=== PATIENT | female | born 1950 | race Caucasian/White ===

== ENCOUNTER 2019-05-12 11:39 | Inpatient (IN) ==
--- NOTE | 2019-05-12 11:53 | PROVIDER DOCUMENTATION ---
HPI-General Adult - General Stated Complaint: BP LOW Time Seen by Provider: 05/12/19 11:44 Source: patient - History of Present Illness -Gen Adult Nature of Presenting Problems: Pt. is 69 yof that presents from rehab after she was SOB and her BP was low. She denies any other complaints. Location of Pain/Injury: reports: none. denies: head, face, mouth, neck, chest, upper extremity, hand(s), abdomen, back, pelvis, genitalia, lower extremity, feet, upper body, lower body, generalized, other Pain Radiation: reports: no radiation. denies: arm(s), back, buttocks, chest, epigastric, feet, groin, jaw, flank (L), legs (lower), LLQ, LUQ, neck, periumbilical, flank (R), RLQ, RUQ, shoulder(s), scapula, scrotal, sternal notch, suprapubic, legs (upper), urethral, vaginal, other Quality of Pain: reports: none. denies: aching, pressure, tightness Severity: reports: mild. denies: moderate, severe Onset/Duration: reports: abrupt, just prior to arrival Timing: reports: still present. denies: improving, intermittent, getting worse Context/Activities at Onset: reports: light activity. denies: none, moderate activity, vigorous activity, recent emotional stress, recent physical stress, recent trauma history, possible bad food, cold exposure, eating, out of country travel, rest, sleep, sexual activity, other Modifying Factors: improves with: nothing Associated Symptoms: reports: shortness of breath. denies: denies symptoms, anxiety, arm pain, back/neck pain, chest pain, constipation, cough, diaphoresis, diarrhea, dizziness, EENT symptoms, fatigue, fever/chills, genitourinary problems, headaches, heartburn, joint pain, loss of appetite, malaise, muscle aches, sinus congestion/drainage, nausea, rash, seizure, sensory/motor loss, pain with inspiration, swelling/mass in abdomen, syncope, vomiting, weakness, trouble walking, other Similar Symptoms Previously?: No Recently seen or treated by another doctor?: No Review of Systems - Adult - REVIEW OF SYSTEMS - ADULT Constitutional: reports: no symptoms reported Eyes: reports: no symptoms reported Ears, Nose, Mouth & Throat: reports: no symptoms reported Cardiovascular: reports: no symptoms reported Respiratory: reports: see HPI, shortness of breath. denies: cough, dyspnea on exertion, pleurisy Gastrointestinal: reports: no symptoms reported Genitourinary: reports: no symptoms reported Musculoskeletal: reports: no symptoms reported Integumentary: reports: no symptoms reported Neurological: reports: no symptoms reported Psychiatric: reports: no symptoms reported Past History - Adult - PAST MEDICAL HISTORY-ADULT Review of Records: reports: Old Records Reviewed, Nursing Assessment Review, Medications Reviewed, Social history reviewed & non-contributory. - IMMUNIZATION STATUS Childhood Immunizations: See Nurse Assessment Flu Vaccine: See Nurse Assessment - FAMILY HISTORY Family History: reviewed, not pertinent - SOCIAL HISTORY Smoking: non-smoker Physical Exam-General - PHYSICAL EXAM-ADULT Initial Vital Signs Reviewed: Yes - CONSTITUTIONAL General Appearance: alert, moderate distress, obese. negative: anxious, obtunded, combative - EYES Eyes: PERRL/EOMI, pink conjunctivae - HEAD, EARS, NOSE, MOUTH & THROAT HENMT: normocephalic/atraumatic, moist mucous membranes - NECK Neck: non-tender, full range of motion, supple, normal inspection - RESPIRATORY Respiratory: lungs clear, normal breath sounds - CARDIOVASCULAR Cardiovascular: regular rate, rhythm, no JVD, tachycardia. negative: extra beats, friction rub, irregularly irregular - GASTROINTESTINAL (ABDOMEN) Abdominal Exam: normal bowel sounds, non tender, soft - LYMPHATIC Lymphatic: no adenopathy - MUSCULOSKELETAL Back Exam: normal inspection, no CVA tenderness, no vertebral tenderness Extremity: normal range of motion, non-tender, normal gait, normal inspection Peripheral Pulses: radial (R): 2+, radial (L): 2+ - SKIN Integumentary: pallor. negative: cyanosis, erythema, tenderness - NEUROLOGIC Neurologic: grossly normal, no motor/sensory deficits - PSYCHIATRIC Psych/Mental Status: normal mood/affect, normal thought content, normal thought process, oriented x 3. negative: anxious, paranoid, tearful Progress - PLAN OF CARE/RESULTS Progress/Plan/Lab Results: Orders Category Date Time Status Saline Loc NOW Care 05/12/19 11:49 Ordered CHEST-PORTABLE [RAD] Stat Exams 05/12/19 11:50 Ordered CBC WITH ELECTRONIC DIFF [HEME] Stat Lab 05/12/19 11:50 Uncollected CK PROFILE [SP CHEM] Stat Lab 05/12/19 11:50 Uncollected COMPREHENSIVE METABOLIC PANEL [CHEM] Stat Lab 05/12/19 11:50 Uncollected PRO B-NATRIURETIC PEPTIDE Stat Lab 05/12/19 11:50 Ordered TROPONIN T Stat Lab 05/12/19 11:[address] W/POSS RFLX CULT [URINALYSIS] Stat Lab 05/12/19 11:50 Uncollecte d EKG [EKG] Stat Ther 05/12/19 11:49 Ordered Laboratory Tests 05/12/19 05/12/19 05/12/19 11:55 12:17 12:17 WBC 12.34 H RBC 4.29 Hgb 13.1 Hct 40.2 MCV 93.7 MCH 30.5 MCHC 32.6 L RDW Std Deviation 18.4 H Plt Count 335 MPV 9.3 Immature Gran % (Auto) 0.6 H Neut % (Auto) 64.9 Lymph % (Auto) 23.7 Cass % (Auto) 7.5 Eos % (Auto) 2.7 Baso % (Auto) 0.6 Immature Gran # (Auto) 0.08 H Neut # (Auto) 7.99 H Lymph # (Auto) 2.93 Cass # (Auto) 0.93 H Eos # (Auto) 0.33 Baso # (Auto) 0.08 Specimen Type ARTERIAL Sample Site R BRACHIAL pH 7.45 pCO2 40 pO2 45 L* HCO3 27.3 H Base Excess 3.5 H Oxyhemoglobin 82.8 L* ABG O2 Sat (Calculated) 15.2 ABG O2 Saturation 85.9 L ABG Carboxyhemoglobin 2.80 H ABG Methemoglobin 0.9 Lloyd Test NO A-a O2 Difference 55.0 Total Hemoglobin 13.1 Lactate 1.10 Blood Gas Modality ROOM AIR FiO2 % 21.0 Sodium Potassium Chloride Carbon Dioxide Anion Gap BUN Creatinine Estimated GFR/1.73 m2 BUN/Creatinine Ratio Glucose Calculated Osmolality Calcium Total Bilirubin AST ALT Alkaline Phosphatase Creatine Kinase Troponin T Zoh-U-Udnparphvoz Pept 1718 H Total Protein Albumin Globulin Albumin/Globulin Ratio 05/12/19 05/12/19 12:17 12:17 WBC RBC Hgb Hct MCV MCH MCHC RDW Std Deviation Plt Count MPV Immature Gran % (Auto) Neut % (Auto) Lymph % (Auto) Cass % (Auto) Eos % (Auto) Baso % (Auto) Immature Gran # (Auto) Neut # (Auto) Lymph # (Auto) Cass # (Auto) Eos # (Auto) Baso # (Auto) Specimen Type Sample Site pH pCO2 pO2 HCO3 Base Excess Oxyhemoglobin ABG O2 Sat (Calculated) ABG O2 Saturation ABG Carboxyhemoglobin ABG Methemoglobin Lloyd Test A-a O2 Difference Total Hemoglobin Lactate Blood Gas Modality FiO2 % Sodium 140 Potassium 4.6 Chloride 106 Carbon Dioxide 25 Anion Gap 9 BUN 13 Creatinine 1.1 H Estimated GFR/1.73 m2 49 BUN/Creatinine Ratio 12 Glucose 89 Calculated Osmolality 279 Calcium 9.7 Total Bilirubin 0.20 AST 29 ALT 32 Alkaline Phosphatase 101 Creatine Kinase 175 H Troponin T 0.074 Dfm-F-Ysfidhxvqnu Pept Total Protein 6.4 Albumin 3.4 L Globulin 3.0 Albumin/Globulin Ratio 1.0 Discussed results and plan of care with patient. Patient agrees with plan and verbalizes understanding. Result Diagrams: 05/12/19 12:17 05/12/19 12:17 - EKG 1 Time of EKG reading by physician:: 13:42 EKG Read and Signed by:: Miguel Ángel Vera EKG Interpretation (*Must complete 3 of following elements*): Abnormal Rate: 95 Rhythm: Sinus with non-specific ST changes ST Wave: non-specific ST changes - XRAY 1 XRAY Study: Chest ([facility] - [address] [place] [address] [place] [id number] [facility] - [address] [place] [address] Department of Imaging Patient: VIET GANNON Date: 05/12/19MR#: [id number] : 9ADM Status: PRE ERAcct#: [id number] Age/Sex: 69/FRoom/Bed: Loc: P.ED Ordering Physician: Monse Desai Family Physician: Kumar Mancini MD Reason for Procedure: SOB Signed EXAM: CHEST-PORTABLE 05/12/2019 HISTORY: SOB TECHNIQUE: AP upright portable at 1258 COMMENT: The heart is at the upper limits of normal. The pulmonary vascularity is slightly prominent. There is what appears to be platelike atelectasis in the lingula. The left costophrenic angle is somewhat obscured. There are no previous studies available for comparison. IMPRESSION: Borderline cardiomegaly. Lingular atelectasis. Questionable left pleural effusion versus atelectasis. Electronically signed by Deion Weaver 05/12/2019 12:55 PM 05/12/19 1255 Interpreting Physician: Deion Weaver MD Dictated Date/Time: 05/12/19 1251 cc: Monse Desai; Kumar Mancini MD) XRAY Interpretation: See note - CONSULTS/PCP/HOSPITALIST Notification #1 *Consult/PCP/Hospitalist*: Vandana for Dr. Mancini Time Discussed: 13:41 Reason/Comments: Admission Consult Disposition: Will see in ED, Admit Departure - Departure Date of Disposition Decision: 05/12/19 Time of Disposition Decision: 13:41 DIAGNOSIS: Hypoxia, Shortness of breath, Renal insufficiency, Pleural effusion Disposition: ADMITTED INPATIENT 09 Certified Medical Emergency: Emergent Condition: Stable Referrals and Follow-Ups: Kumar Mancini MD [Primary Care Provider] - - Critical Care Note This patient required my direct & personal management of CC.: No Attestation - Physician/ JAYDEN Attestation Patient care was provided by Advanced Practice Provider:: Yes Advanced Practice Provider:: Monse Desai Advanced Practice Provider documentation review:: The Mid-level provider documentation, treatment plan and medical decision making was reviewed by the physician who agrees with all treatment and medical decision making by the P. The physician spent face to face time with patient:: No Advanced Practice Provider documentation review:: Supervising physician onsite and consulted in the evaluation and care of this patient. The physician did not have a face to face encounter with the patient.
[2019-05-12 12:19] LABS: BE 3.5 mmoll (-3.0-3.0); BLOOD TYPE ARTERIAL; HCO3-(ACT) 27.3 mmoll (20.0-26.0); METHB 0.9 % (0.0-1.5); O2(CT) 15.2 mL/dL (15.0-23.0); PCO2(98.6) 40 mmHg (35-45); SAMPLE BLOOD; SAO2 85.9 % (95.0-100.0); THB 13.1 g/dL (11.5-17.4); pH(98.6) 7.45 (7.35-7.45)
[2019-05-12 12:38] LABS: PO2(98.6) 45 mmHg (60-100)
[2019-05-12 12:40] LABS: ALLEN TEST NO; MODALITY ROOM AIR; O2HB 82.8 % (95.0-99.0)
[2019-05-12 12:50] LABS: BASO# 0.08 X1000 (0.0-0.2); BASO% 0.6 % (0.0-0.8); EOS# 0.33 X1000 (0.0-0.7); EOS% 2.7 % (0.0-10.0); HEMATOCRIT 40.2 % (37.0-47.0); HEMOGLOBIN 13.1 g/dL (12.0-16.0); IMM GRAN# 0.08 X1000 (0.0-0.04); IMM GRAN% 0.6 % (0.0-0.5); LYMPH# 2.93 X1000 (1.2-3.4); LYMPH% 23.7 % (20.5-51.1); MCH 30.5 PG (27-31); MCHC 32.6 g/dL (33-37); MCV 93.7 FL (81-99); MONO# 0.93 X1000 (0.11-0.59); MONO% 7.5 % (1.7-9.3); MPV 9.3 FL (7.4-10.4); NEUT# 7.99 X1000 (1.4-6.5); NEUT% 64.9 % (42.2-75.2); PLT 335 X1000 (130-400); RBC 4.29 XMIL (4.2-5.4); RDW 18.4 % (11.5-14.5); WBC 12.34 X1000 (4.8-10.8)
--- NOTE | 2019-05-12 12:57 | Diag Imaging Result Doc PS360 ---
EXAM: CHEST-PORTABLE 05/12/2019 HISTORY: SOB TECHNIQUE: AP upright portable at 1258 COMMENT: The heart is at the upper limits of normal. The pulmonary vascularity is slightly prominent. There is what appears to be platelike atelectasis in the lingula. The left costophrenic angle is somewhat obscured. There are no previous studies available for comparison. IMPRESSION: Borderline cardiomegaly. Lingular atelectasis. Questionable left pleural effusion versus atelectasis. Electronically signed by Deion Weaver 05/12/2019 12:55 PM
[2019-05-12 13:18] LABS: ALBUMIN 3.4 g/dL (3.5-5.0); CALCIUM 9.7 mg/dL (8.8-10.2); CREATININE 1.1 mg/dL (0.5-0.9); POTASSIUM 4.6 mmol/L (3.5-5.1); TOTAL BILIRUBIN 0.2 mg/dL (0.20-1.00); TOTAL PROTEIN 6.4 g/dL (6.3-8.3)
--- NOTE | 2019-05-12 13:20 | EKG Report ---
Test Performed on : 05/12/2019 1:16:00 PM Test Reason : SOB Blood Pressure : / mmHG Vent. Rate : 095 BPM Atrial Rate : 095 BPM P-R Int : 164 ms QRS Dur : 094 ms QT Int : 366 ms P-R-T Axes : 061 016 006 degrees QTc Int : 459 ms Normal sinus rhythm. Possible Inferior infarct , age undetermined Abnormal ECG When compared with ECG of 05-SEP-2009 14:03, Borderline criteria for Inferior infarct are now present Nonspecific T wave abnormality now evident in Inferior leads T wave inversion now evident in Anterior leads Unconfirmed Result
[2019-05-12 14:09] LABS: CK INDEX 3.5 (0.0-2.5); CK-MB 6.08 ng/mL (0.0-5.0)
[2019-05-12 14:16] LABS: BILIRUBIN URINE NEGATIVE (NEGATIVE); BLOOD URINE NEGATIVE (NEGATIVE); CLARITY SL. CLOUDY (CLEAR); COLOR YELLOW; GLUCOSE URINE NEGATIVE (NEGATIVE); KETONE URINE TRACE mg/dL (NEGATIVE); LEUKOCYTES URINE TRACE (NEGATIVE); NITRITE URINE NEGATIVE (NEGATIVE); PROTEIN URINE TRACE mg/dL (NEGATIVE); UROBILINOGEN URINE NORMAL
[2019-05-12 14:17] LABS: URINE BACTERIA 3+ /HFP; URINE CAST NONE SEEN /LPF; URINE CRYSTAL NONE SEEN /HPF; URINE EPITHELIAL CELLS >10 /HPF (<10); URINE RBC <10 /HPF (<10); URINE SOURCE CLEAN CATCH; URINE WBC 20-40 /HPF (<10); URINE YEAST NONE SEEN /HPF
--- NOTE | 2019-05-12 15:09 | PROGRESS NOTE ---
DATE: 05/12/2019 SUBJECTIVE: Ms. Schroeder presented to the emergency room complaining of increasing shortness of breath. She has a history of COPD. Evidently, she was at rehab. She was found to have a low O2 saturation, prompting them sending her to the ER for evaluation. On arrival to the emergency room, she had a room air saturation of 83%. Room air ABGs were obtained. pH of 7.45, pCO2 of 40, PO2 of 45 with a bicarbonate of 27.3, and carboxyhemoglobin is 2.80. Chest x-ray revealed borderline cardiomegaly with lingular atelectasis. The patient was worked up by the emergency room provider. Admission was recommended. When I went in to examine Ms. Schroeder, she refused to be admitted, stating that her granddaughter who they had raised was 16 and she was having her wisdom teeth out in the morning and that she had to be there for her surgery. We did discuss in depth how sick Ms. Schroeder is. We discussed that her oxygen levels on 2 L are running 88 to 92 while I was in the room examining her with respirations that are running 22 to 26. She continued to refuse admission. Ms. Schroeder uses oxygen at home. She does have a stationary tank. She did agree to allow our addiction social worker to call [facility] who supplies her oxygen, and attempt to get portable oxygen for her to use. We did discuss with Ms. Schroeder, as well as her , that she is in respiratory distress now and that this could deteriorate quickly, ultimately leading to her . They both voiced understanding. We did discuss that if she does have trouble, they need to call 911 immediately, not try to drive her back to the hospital. Desmond Desai, the nurse practitioner in the emergency room, is aware. The patient and her have been notified that she will have to sign out against medical advice. They are both agreeable. Dictated by MICHAEL Meehan for Kumar Mancini MD cc: MICHAEL Meehan MD [facility]
[2019-05-12] MEDS ORDERED: ZOFRAN IV PRN ×2 (15:32→18:15)
[2019-05-12] MEDS ORDERED: DUONEB (A & A) INH PRN ×2 (15:35→18:15)
[2019-05-12] MEDS: ROCEPHIN 1 GM in NS 50 ML IV SCH (17:35)
[2019-05-12] MEDS: ZITHROMAX PO SCH (17:35)
--- NOTE | 2019-05-12 17:59 | EKG Report ---
Test Performed on : 05/12/2019 4:14:23 PM Test Reason : repeat Blood Pressure : / mmHG Vent. Rate : 095 BPM Atrial Rate : 095 BPM P-R Int : 176 ms QRS Dur : 092 ms QT Int : 336 ms P-R-T Axes : 064 023 043 degrees QTc Int : 422 ms Normal sinus rhythm. Nonspecific T wave abnormality Abnormal ECG When compared with ECG of 12-MAY-2019 13:16, (Unconfirmed) No significant change was found Unconfirmed Result
[2019-05-12] MEDS ORDERED: TYLENOL PO PRN (18:15)
[2019-05-12] MEDS: DUONEB (A & A) INH SCH ×2 (20:20→23:40)
--- NOTE | 2019-05-12 22:18 | HISTORY AND PHYSICAL ---
CHIEF COMPLAINT: Low oxygen saturation. HISTORY OF PRESENT ILLNESS: This is a 69-year-old morbidly obese female with a history of COPD who presented to the emergency room after having been found to have to have am oxygen saturation of 78% at rehab. The patient wears oxygen at home but only at night. She feels that she has been in her normal state, at her normal level of breathlessness. She was noted to have a room air saturation of 83% on arrival to the emergency room. ABGs revealed a pCO2 of 40 with a pO2 of 45, with saturations that were running 88% to 92% on 2 L nasal cannula. On 2 L nasal cannula, O2 saturations now have been running 90% to 92%. Once again, the patient does not feel breathless. She denies any fever or chills, any increase in shortness of breath, productive cough, or any chest pain or palpitations. PAST MEDICAL HISTORY: COPD, dementia, hypothyroid, hypertension. PAST SURGICAL HISTORY: Denies. SOCIAL HISTORY: She denies alcohol, tobacco, or illicit drug use. She does live with her . ALLERGIES: Codeine, which causes a rash. HOME MEDICATIONS: A list will be obtained by the nursing staff, and once verified, will be restarted as appropriate. PHYSICAL EXAMINATION: VITAL SIGNS: Blood pressure is 156/92 with a heart rate of 101. Respirations are 20 to 22. Temperature is 98.1 with O2 saturations that are 90% to 92% on 2 L nasal cannula. HEENT: Eyes: Pupils are equal and round and react to light. EOMs are intact. Sclerae anicteric. Head is normocephalic, atraumatic. Mucous membranes are moist. NECK: Supple. Trachea midline. No JVD. CARDIOVASCULAR: Regular rate and rhythm. S2 and S2 appreciated. She is tachycardic. EXTREMITIES: Calves are nontender bilaterally. Peripheral pulses palpable x4 extremities. PULMONARY: Breath sounds are clear with no increased work of breathing noted. Chest rise falls symmetrically with respiration. Chest wall is nontender to palpation. GASTROINTESTINAL: Abdomen is soft, nontender, nondistended with bowel sounds in all 4 quadrants. SKIN: Warm and dry. NEUROLOGIC: She is alert oriented x3. LABS: WBCs 12.3 with hemoglobin 13.1, hematocrit 40.2, platelets 335. Sodium is 140, potassium 4.6, BUN 13, creatinine 1.1 with a glucose of 89. CPK is 175 with CK-MB of 6, troponin 0.074 and proBNP of 1718. Urinalysis reveals 20 to 40 microscopic white blood cells with greater than 10 epithelial cells and 3+ bacteria. She is nitrite negative. Chest x-ray reveals borderline cardiomegaly, lingular atelectasis, questionable left pleural effusion versus atelectasis. ASSESSMENT: 1. Acute hypoxic respiratory failure. 2. Chronic obstructive pulmonary disease, acute on chronic exacerbation. 3. Acute kidney injury. 4. Hypothyroid. 5. Hypertension. 6. DVT prophylaxis and GI prophylaxis. PLAN: The patient will be admitted to ICU at [facility]. telemetry continue with supplemental oxygen. ABGs in the morning incentive spirometer every 4 hours DuoNeb treatments every 4 hours with every 2 hours p.r.n. Blood cultures and sputum culture will be ordered. Rocephin and azithromycin. identify her home medications and continue as appropriate. DVT prophylaxis, Lovenox, GI prophylaxis, Prilosec. Further treatments pending hospital course. The plan was discussed with Dr. Mancini. Dictated by MICHAEL Meehan for Kumar Mancini MD cc: MICHAEL Meehan MD [facility]
[2019-05-12] MEDS ORDERED: RISPERDAL PO ONE ×2 (22:40→22:46)
[2019-05-12] MEDS: BENADRYL PO PRN (22:54)
[2019-05-12] MEDS: TYLENOL PO PRN (22:54)
[2019-05-12] MEDS ORDERED: ARICEPT PO ONE (23:17)
[2019-05-12] MEDS: ROBITUSSIN-DM PO PRN (23:41)
--- NOTE | 2019-05-12 23:52 | HISTORY AND PHYSICAL ---
ADDENDUM: Patient seen and examined by myself. Full note dictated and discussed with nurse practitioner. The patient was in her usual state of health at home until she presented to physical therapy this afternoon. In routine vital check, they noted her O2 saturation was 79%, was actually 83% on room air when she arrived to the ER. She does not have oxygen for daily use at home, simply uses oxygen at home at night on an as-needed basis. Her chest x-ray shows a probable pleural effusion, which does appear to be new. We are going to admit her to the hospital, place her on home oxygen, breathing treatments. We will follow. We will place her on antibiotics. Further orders as needed. cc: Kumar Mancini MD
[2019-05-13] MEDS: DUONEB (A & A) INH SCH ×6 (04:21→23:56)
[2019-05-13 05:45] LABS: BASO# 0.06 X1000 (0.0-0.2); BASO% 0.6 % (0.0-0.8); EOS# 0.36 X1000 (0.0-0.7); EOS% 3.6 % (0.0-10.0); HEMOGLOBIN 12.8 g/dL (12.0-16.0); IMM GRAN# 0.04 X1000 (0.0-0.04); IMM GRAN% 0.4 % (0.0-0.5); LYMPH# 3.65 X1000 (1.2-3.4); LYMPH% 36.5 % (20.5-51.1); MCH 29.8 PG (27-31); MONO# 0.77 X1000 (0.11-0.59); MONO% 7.7 % (1.7-9.3); MPV 9.1 FL (7.4-10.4); NEUT# 5.11 X1000 (1.4-6.5); NEUT% 51.2 % (42.2-75.2); PLT 356 X1000 (130-400); RDW 18.3 % (11.5-14.5); WBC 9.99 X1000 (4.8-10.8)
[2019-05-13 06:01] LABS: ALBUMIN 3.3 g/dL (3.5-5.0); CALCIUM 9.6 mg/dL (8.8-10.2); TOTAL BILIRUBIN 0.3 mg/dL (0.20-1.00); TOTAL PROTEIN 6.6 g/dL (6.3-8.3)
[2019-05-13 06:04] LABS: BE 4.9 mmoll (-3.0-3.0); BLOOD TYPE ARTERIAL; HCO3-(ACT) 28.6 mmoll (20.0-26.0); METHB 1.4 % (0.0-1.5); O2(CT) 16.5 mL/dL (15.0-23.0); O2HB 92.3 % (95.0-99.0); PCO2(98.6) 41 mmHg (35-45); PO2(98.6) 65 mmHg (60-100); SAMPLE BLOOD; SAO2 95.8 % (95.0-100.0); THB 12.7 g/dL (11.5-17.4); pH(98.6) 7.46 (7.35-7.45)
[2019-05-13 06:07] LABS: ALLEN TEST YES; MODALITY CANNULA
[2019-05-13] MEDS: PRILOSEC PO SCH (07:01)
[2019-05-13] MEDS: ZITHROMAX PO SCH (09:51)
[2019-05-13] MEDS: LOVENOX SUBQ SCH (09:51)
[2019-05-13] MEDS ORDERED: RELISTOR SUBQ ONE (09:52)
[2019-05-13] MEDS: COLACE PO SCH ×2 (13:19→20:28)
[2019-05-13] MEDS: ROCEPHIN 1 GM in NS 50 ML IV SCH (17:09)
[2019-05-13] MEDS: BENADRYL PO PRN (20:27)
[2019-05-13] MEDS: TYLENOL PO PRN (20:27)
[2019-05-13] MEDS: ROBITUSSIN-DM PO PRN (20:28)
[2019-05-13] MEDS: ARICEPT PO SCH (20:28)
[2019-05-13] MEDS: RISPERDAL PO SCH (20:28)
[2019-05-13] MEDS ORDERED: ZOFRAN IV PRN (20:55)
[2019-05-13] MEDS ORDERED: ARICEPT PO ONE (22:40)
--- NOTE | 2019-05-14 00:26 | PROGRESS NOTE ---
DATE: 05/13/2019 SUBJECTIVE: The patient seems to be doing better today than she was yesterday. Denies any chest pain, palpitations. States her shortness of breath is better although she has not been out of bed. She has been lying in the bed in the ICU overnight. Denies any fevers or chills. Denies any GI or issues currently. PHYSICAL EXAMINATION: Vital Signs: Temperature 98 degrees, pulse 74, respiratory 18, BP 125/66. General: Patient is awake, alert, currently in no respiratory distress. She is wearing oxygen. HEENT: Normocephalic. Neck: Supple. Cardiovascular: Regular rate. Chest: Equal bilaterally, nonlabored. No crackles. No wheezing. Abdomen: Soft, obese, nondistended. Extremities: Moves all extremities. Neurologic: No changes. ASSESSMENT: 1. Acute hypoxic respiratory failure on chronic respiratory failure. 2. Chronic obstructive pulmonary disease with mild exacerbation. 3. Hypothyroidism. 4. Hypertension. PLAN: We are going to continue patient in the hospital. Continue oxygen, wean as tolerated. Continue treatment. We will follow-up blood cultures. Further orders as needed. cc: Kumar Mancini MD
[2019-05-14] MEDS: DUONEB (A & A) INH SCH ×6 (05:12→23:41)
[2019-05-14] MEDS: PRILOSEC PO SCH (06:37)
[2019-05-14] MEDS: ZITHROMAX PO SCH (09:20)
[2019-05-14] MEDS: COLACE PO SCH ×2 (09:21→20:57)
[2019-05-14] MEDS: LOVENOX SUBQ SCH (09:21)
[2019-05-14] MEDS ORDERED: PERCOCET-10 PO PRN (11:04)
[2019-05-14] MEDS: SYNTHROID PO SCH (11:56)
[2019-05-14] MEDS: COZAAR PO SCH (11:56)
[2019-05-14] MEDS: ROCEPHIN 1 GM in NS 50 ML IV SCH (16:30)
[2019-05-14] MEDS: XANAX PO PRN (16:51)
--- NOTE | 2019-05-14 17:18 | PROGRESS NOTE ---
DATE: 05/14/2019 SUBJECTIVE: Patient notes that she is feeling a lot better. Denies any fevers or chills. Denies cough. States her shortness of breath is improved. In fact, she states she was able to sleep several hours last night, which she has not been doing. PHYSICAL EXAMINATION: Vital Signs: Temperature 97.6, pulse 82, respiratory 20, and BP 133/72. General: Patient is in no respiratory distress. Very pleasant. She appears to be improving. HEENT: Normocephalic. Neck: Supple. Cardiovascular: Regular rate. Chest: Much improved air bilaterally. No current wheezing. No crackles. Extremities: Moves all extremities. Neurologic: No changes. Abdomen: Soft, obese, and nondistended. ASSESSMENT: 1. Acute hypoxic on chronic hypoxic respiratory failure. 2. Chronic kidney disease stable. 3. COPD with exacerbation. 4. Hypothyroidism. 5. Hypertension. 6. Obesity. PLAN: We will move patient to the floor. Allow her to start ambulating. Hopefully, her oxygen will stay stable and she can discharge home over the next day or two. cc: Kumar Mancini MD
[2019-05-14] MEDS: RISPERDAL PO SCH (20:56)
[2019-05-14] MEDS: ARICEPT PO SCH (20:57)
[2019-05-14] MEDS ORDERED: RISPERDAL PO SCH (21:00)
[2019-05-15] MEDS: DUONEB (A & A) INH SCH ×6 (04:09→23:39)
[2019-05-15] MEDS: PRILOSEC PO SCH (06:24)
[2019-05-15] MEDS: SYNTHROID PO SCH (06:24)
[2019-05-15] MEDS: COZAAR PO SCH (09:11)
[2019-05-15] MEDS: ZITHROMAX PO SCH (09:11)
[2019-05-15] MEDS: COLACE PO SCH ×2 (09:11→21:25)
[2019-05-15] MEDS: LOVENOX SUBQ SCH (09:12)
--- NOTE | 2019-05-15 10:20 | PROGRESS NOTE ---
DATE: 05/15/2019 SUBJECTIVE: Patient denies having any acute complaints this morning. She feels better as compared to when she came into the hospital. OBJECTIVE: Vital Signs: Temperature 97.8 degrees, pulse 96 per minute, respiratory rate 20 per minute, blood pressure 156/74, pulse oximetry 95% on 3 L of oxygen via nasal cannula. General: Patient is alert and oriented x3. She does not appear to be in any acute distress. Cardiovascular System: First and second heart sounds are audible without any murmurs or gallops. Respiratory System: Bilateral lung air entry is good without any rales or rhonchi. Gastrointestinal System: Abdomen is soft and nondistended. Normal bowel sounds are present. Musculoskeletal System: No deformities are present. DIAGNOSTIC DATA: No new labs have been done this morning. IMPRESSION: 1. Acute hypoxemic respiratory failure secondary to acute chronic obstructive pulmonary disease exacerbation that has now improved, although she remains somewhat hypoxemic. 2. Hypertension that has been stable. 3. Hypothyroidism that is also stable. PLAN: We are going to continue the patient on bronchodilators. She is already on azithromycin and ceftriaxone, but she does not have any pneumonia, and I do not see any other infections. Therefore I am going to discontinue those antibiotics. She is not on any systemic steroids at this time, and she is not having any wheezing either. Therefore, she does not have any steroids, but we are going to continue with bronchodilators as mentioned above. I am going to repeat an ABG tomorrow morning on room air to see if she will need any supplemental oxygen at discharge. cc: Charles Recio MD
[2019-05-15] MEDS: XANAX PO PRN ×2 (12:31→22:03)
[2019-05-15] MEDS: ROCEPHIN 1 GM in NS 50 ML IV SCH (16:42)
[2019-05-15] MEDS: RISPERDAL PO SCH (21:24)
[2019-05-15] MEDS: ARICEPT PO SCH (21:25)
[2019-05-15] MEDS: BENADRYL PO PRN (21:29)
[2019-05-16] MEDS: DUONEB (A & A) INH SCH ×6 (04:38→23:30)
[2019-05-16] MEDS: PRILOSEC PO SCH (06:26)
[2019-05-16] MEDS: SYNTHROID PO SCH (06:26)
[2019-05-16 06:34] LABS: BE 5.4 mmoll (-3.0-3.0); BLOOD TYPE ARTERIAL; HCO3-(ACT) 28.7 mmoll (20.0-26.0); METHB 1.5 % (0.0-1.5); O2(CT) 16.7 mL/dL (15.0-23.0); PCO2(98.6) 38 mmHg (35-45); SAMPLE BLOOD; SAO2 86.2 % (95.0-100.0); THB 14.4 g/dL (11.5-17.4); pH(98.6) 7.49 (7.35-7.45)
[2019-05-16 06:37] LABS: ALLEN TEST YES; MODALITY ROOM AIR; O2HB 82.9 % (95.0-99.0); PO2(98.6) 43 mmHg (60-100)
[2019-05-16 07:05] LABS: BASO# 0.07 X1000 (0.0-0.2); BASO% 0.6 % (0.0-0.8); EOS# 0.27 X1000 (0.0-0.7); EOS% 2.3 % (0.0-10.0); HEMOGLOBIN 13.4 g/dL (12.0-16.0); IMM GRAN# 0.03 X1000 (0.0-0.04); IMM GRAN% 0.3 % (0.0-0.5); LYMPH# 3.39 X1000 (1.2-3.4); LYMPH% 29.2 % (20.5-51.1); MCHC 31.9 g/dL (33-37); MONO# 0.88 X1000 (0.11-0.59); MONO% 7.6 % (1.7-9.3); MPV 9.4 FL (7.4-10.4); NEUT# 6.97 X1000 (1.4-6.5); PLT 349 X1000 (130-400); RBC 4.47 XMIL (4.2-5.4); RDW 18.6 % (11.5-14.5); WBC 11.61 X1000 (4.8-10.8)
[2019-05-16 07:22] LABS: AGAP 11; BUN 9 mg/dL (8-22); CHLORIDE 104 mmol/L (98-107); COSMO 278; CREATININE 0.8 mg/dL (0.5-0.9); ESTIMATED GFR > 60; GLUCOSE 94 mg/dL (70-104); SODIUM 140 mmol/L (136-145); TCO2 25 mmol/L (25-35)
--- NOTE | 2019-05-16 08:17 | Diag Imaging Result Doc PS360 ---
EXAM: CHEST-PORTABLE - 05/16/2019 HISTORY: Respiratory Failure TECHNIQUE: Portable chest COMPARISON: 05/12/2019 FINDINGS: There is stable borderline cardiomegaly. There are artifacts from skin folds over the bilateral bases. The lungs otherwise appear grossly clear. There is no pleural effusion or pneumothorax identified. IMPRESSION: Stable borderline cardiomegaly. No other discrete evidence of acute disease. Electronically signed by Ran Carey 05/16/2019 8:15 AM
[2019-05-16] MEDS: COLACE PO SCH ×3 (08:56→21:30)
[2019-05-16] MEDS: COZAAR PO SCH (08:56)
[2019-05-16] MEDS: LOVENOX SUBQ SCH ×2 (08:56→21:30)
--- NOTE | 2019-05-16 10:07 | PROGRESS NOTE ---
DATE: 05/16/2019 SUBJECTIVE: The patient denies having any new complaints. She feels well overall. OBJECTIVE: Vital Signs: Temperature 98 degrees, pulse 97 per minute, respiratory rate 18 per minute, blood pressure 163/75, pulse oximetry 95% on 3 L of oxygen via nasal cannula. General: The patient is alert and oriented x3. She does not appear to be in any acute distress. Cardiovascular: First and second heart sounds are audible without murmurs or gallops. Respiratory: Bilateral lung air entry is moderately decreased, but there are no rales or rhonchi present on auscultation. Gastrointestinal: The patient is morbidly obese. Abdomen is soft and nondistended. Normal bowel sounds are present. DIAGNOSTIC DATA: CBC shows WBC count of 11.61 with 60% neutrophils. Rest of the CBC is nondiagnostic. Basic metabolic panel is within normal limits, and ABG done this morning showed pH of 7.49, pCO2 of 38, and PO2 of 43 on room air. Chest x-ray obtained this morning showed borderline cardiomegaly, but no other discrete evidence of any acute disease. IMPRESSION: 1. Acute hypoxemic respiratory failure with acute chronic obstructive pulmonary disease exacerbation. 2. Hypertension. 3. Hypothyroidism. PLAN: The patient has been admitted with acute hypoxemic respiratory failure secondary to acute COPD exacerbation, but currently she is not having any wheezing, and clinically her respiratory status is stable, but she remains hypoxemic. Chest x-rays fail to show any significant pneumonia or any other findings. I am concerned about the patient having any venous thromboembolism, and therefore I am going to obtain CT angiogram of the pulmonary arteries to rule out that. Meanwhile, she is not on any systemic steroids since she is not having any wheezing, and we are going to continue her bronchodilators along with supplemental oxygen. Her blood pressure has been stable, and therefore we are going to continue with losartan 100 mg daily, and she will continue with levothyroxine 150 mcg daily as well. Further recommendations will be given as per outcome of these measures. cc: Charles Recio MD
[2019-05-16] MEDS: XANAX PO PRN ×2 (16:03→22:42)
--- NOTE | 2019-05-16 18:00 | Diag Imaging Result Doc PS360 ---
EXAM: CT ANGIOGRAM PULMONARY ARTERIES - 05/16/2019 HISTORY: Dyspnea; Hypoxemia TECHNIQUE: CT angiogram pulmonary arteries with intravenous contrast. Axial, 2-D coronal MIP, and 3-D MIP images are obtained. COMPARISON: None. FINDINGS: There are pulmonary emboli at the right lower lobe. There is a small pulmonary embolus at the right upper lobe. There is no indication of aortic dissection. There is cardiomegaly. There is apparent mild pulmonary edema. There are small bilateral pleural effusions. IMPRESSION: Pulmonary emboli at right lower lobe. Small pulmonary embolus at right upper lobe. Mild pulmonary edema/congestive heart failure. Electronically signed by Ran Carey 05/16/2019 5:57 PM
[2019-05-16] MEDS: RISPERDAL PO SCH (21:31)
[2019-05-16] MEDS: ARICEPT PO SCH (21:31)
[2019-05-16] MEDS: BENADRYL PO PRN (22:42)
[2019-05-17] MEDS: DUONEB (A & A) INH SCH ×6 (04:22→23:03)
[2019-05-17 06:27] LABS: BASO# 0.07 X1000 (0.0-0.2); BASO% 0.7 % (0.0-0.8); EOS% 2.8 % (0.0-10.0); HEMATOCRIT 40.6 % (37.0-47.0); HEMOGLOBIN 12.8 g/dL (12.0-16.0); IMM GRAN# 0.03 X1000 (0.0-0.04); IMM GRAN% 0.3 % (0.0-0.5); LYMPH% 28.8 % (20.5-51.1); MCH 29.8 PG (27-31); MCHC 31.5 g/dL (33-37); MCV 94.4 FL (81-99); MONO# 0.78 X1000 (0.11-0.59); MONO% 7.3 % (1.7-9.3); MPV 9.3 FL (7.4-10.4); NEUT# 6.47 X1000 (1.4-6.5); NEUT% 60.1 % (42.2-75.2); PLT 349 X1000 (130-400); RDW 18.7 % (11.5-14.5); WBC 10.75 X1000 (4.8-10.8)
[2019-05-17] MEDS: SYNTHROID PO SCH (06:39)
[2019-05-17] MEDS: PRILOSEC PO SCH (06:39)
[2019-05-17 06:47] LABS: AGAP 13; BUN 8 mg/dL (8-22); CALCIUM 9.9 mg/dL (8.8-10.2); CHLORIDE 104 mmol/L (98-107); COSMO 282; CREATININE 0.8 mg/dL (0.5-0.9); ESTIMATED GFR > 60; GLUCOSE 100 mg/dL (70-104); SODIUM 142 mmol/L (136-145); TCO2 25 mmol/L (25-35)
[2019-05-17] MEDS: COLACE PO SCH ×2 (10:26→21:58)
[2019-05-17] MEDS: XARELTO PO SCH ×2 (10:26→16:48)
[2019-05-17] MEDS: COZAAR PO SCH (10:26)
[2019-05-17] MEDS: LOVENOX SUBQ SCH (10:27)
--- NOTE | 2019-05-17 11:39 | Vascular Study Report ---
EXAM: Venous U/S Bilateral Legs HISTORY: Pulmonary Embolism TECHNIQUE: [place] scale, color Doppler, and duplex evaluation was performed. Standard protocol. COMPARISON: None. FINDINGS: The deep veins of the bilateral lower extremities demonstrate appropriate compressibility and augmentation. No intraluminal thrombus is visualized. There is no evidence for DVT. The superficial veins appear patent. IMPRESSION: No evidence for deep venous thrombosis bilateral lower extremities. Electronically signed by Kelly De Leon 05/17/2019 11:37 AM
[2019-05-17] MEDS: RISPERDAL PO SCH (21:58)
[2019-05-17] MEDS: ARICEPT PO SCH (21:58)
--- NOTE | 2019-05-17 22:43 | PROGRESS NOTE ---
DATE: 05/17/2019 SUBJECTIVE: Patient has no new complaints. States in fact that her breathing is improved slightly. Denies any fevers, chills, chest pain, palpitations. Denies any GI issues. PHYSICAL EXAMINATION: Temperature 98 degrees, pulse 87, respiratory rate 18, BP 163/86.General: Patient is awake, alert, obese female who currently is in no respiratory distress. She is pleasant. HEENT: Normocephalic. Neck: Supple. Cardiovascular: Regular rate. Chest: Clear. Abdomen: Soft. Extremities: Moves all extremities. Neurologic: No changes. ASSESSMENT: 1. Bilateral pulmonary emboli. 2. Hypoxic respiratory failure. 3. Chronic obstructive pulmonary disease with exacerbation. 4. Hypertension. 5. Hypothyroidism. 6. Morbid obesity. PLAN: We will continue patient in the hospital. Start her on Xarelto. Continue physical therapy. She currently is on oxygen. She does have home O2. We will follow. Hopefully her symptoms will improve and she can discharge home over the next day or two. cc: Kumar Mancini MD
[2019-05-18] MEDS: XANAX PO PRN (00:35)
[2019-05-18] MEDS: LOVENOX SUBQ SCH ×2 (00:35→10:00)
[2019-05-18] MEDS: TYLENOL PO PRN (00:35)
[2019-05-18] MEDS: DUONEB (A & A) INH SCH ×4 (03:12→15:50)
[2019-05-18] MEDS: PRILOSEC PO SCH (06:54)
[2019-05-18] MEDS: SYNTHROID PO SCH (06:54)
[2019-05-18] MEDS: COLACE PO SCH ×2 (10:01→10:05)
[2019-05-18] MEDS: COZAAR PO SCH (10:01)
[2019-05-18] MEDS: XARELTO PO SCH (10:01)
[2019-05-18 11:42] VITALS: BP 135/76
[2019-05-18] MEDS ORDERED: PREVNAR 13 IM ONE (14:21)
[2019-05-18] MEDS ORDERED: FLU VACCINE IM ONE (14:22)
[2019-05-18] MEDS ORDERED: PNEUMOVAX 23 IM ONE (14:42)
--- NOTE | 2019-05-18 15:24 | DISCHARGE SUMMARY ---
ADMISSION DATE: 05/12/2019 DISCHARGE DATE: 05/18/2019 ADMISSION DIAGNOSIS: 1. Acute hypoxemic respiratory failure. 2. Chronic obstructive pulmonary disease, acute on chronic exacerbation. 3. Acute kidney injury. 4. Hypothyroidism. 5. Hypertension. DISCHARGE DIAGNOSES: 1. Bilateral pulmonary emboli, acute. 2. Hypoxemic respiratory failure. 3. COPD exacerbation. 4. Hypertension. 5. Hypothyroidism. 6. Morbid obesity. CONSULTATIONS: Home Health. SURGERIES AND PROCEDURES: None. HOSPITAL COURSE: On 05/12/2019, Ms. Drea Schroeder, a morbidly obese female with history of COPD presented to the emergency department with low O2 saturations at rehab, apparently went down to 78%. She usually only wears home oxygen at night and has been experiencing increase in shortness of breath. Her room air oxygen was 83% in the emergency department. CO2 was normal. Her PO2 was low, so she had hypoxemic respiratory failure. She tolerated 2 L of oxygen. Her shortness of breath improved. Workup included CTA of the lungs. She was transferred to the ICU. A CTA of the lungs which was performed on the shows she actually did have pulmonary emboli at the right lower lobe and at the right upper lobe. It showed pulmonary edema, CHF. She was started on Lovenox, weight based initially and then will be discharged on Xarelto. Her comorbidities remain stable. COPD exacerbation resolved. She remains stable on oxygen. She had venous ultrasound. No DVTs for that. She will be continued on home oxygen. DISCHARGE VITAL SIGNS: Temperature 98.0 degrees, heart rate 101, respiratory rate 20, blood pressure 135/76, O2 saturation 96% on 2 L. DISCHARGE LAB DATA: White blood cells 10,000, hemoglobin 12, hematocrit 40, platelet count 349,000. Sodium 142, potassium 4.0, BUN 8, creatinine 0.8, glucose 100, calcium 9.9. It looks like she had a UTI but urine culture is negative. Blood cultures were negative. Sputum culture also negative. So, she will be discharged home with her Xarelto. Yesterday she had an ABG still showed hypoxemia, but it was on room air. The pH 7.49, pCO2 38, PO2 43, bicarb 28, saturation 82%. Lactate was 1. PERTINENT IMAGING: On 05/12, chest x-ray borderline cardiomegaly, lingular atelectasis, questionable left pleural effusion versus atelectasis. On 05/16/2019, chest x- ray stable borderline cardiomegaly. No other discrete evidence of acute disease. The same day had the CTA of the lungs which showed pulmonary emboli in the right lower lobe, small pulmonary embolus in the right upper lobe. Mild pulmonary edema and congestive heart failure, and then 05/17 had a lower extremity venous ultrasound which was negative for any DVTs. 2 EKGs on the , the first one normal sinus rhythm, rate was 95, QTc 459. The second one was normal sinus rhythm, rate 95, QTc 422. DISCHARGE MEDICATIONS: 1. Seroquel 50 mg p.o. nightly. 2. Medrol Dosepak. 3. Xarelto 15 mg p.o. twice a day for 40 tabs and then 20 mg p.o. daily. 4. Tylenol, diphenhydramine 2 p.o. nightly p.r.n. for sleep. 5. Synthroid 150 mcg p.o. daily. 6. Risperidone 3 mg p.o. nightly. 7. Percocet 10, one tablet p.o. t.i.d. p.r.n. 8. Losartan potassium 100 mg p.o. daily. 9. Xanax 0.5 mg p.o. twice daily p.r.n. for anxiety. DISCHARGE DIET: Regular. DISCHARGE ACTIVITY: As tolerated. DISCHARGE PHYSICIAN FOLLOWUP: Dr. Kumar Mancini. DISCHARGE INSTRUCTIONS: Any signs or symptoms of bleeding while on Xarelto. Take all medications as prescribed, especially Xarelto. Will need to follow up soon with your Primary Care Provider. Any worsening symptoms of shortness of breath, please seek medical attention immediately. Wear oxygen. DISCHARGE DISPOSITION: Home. Dictated by MICHAEL Baker for Alcides Souza MD Addendum: Patient seen and examined by myself. Agree with MICHAEL note. It reflects my assessment and plan. Patient is being discharged in stable condition. Will be seen by his PCP in a week. cc: MICHAEL Baker MD [facility]
== END 2019-05-18 14:55 | disposition home health service (06) | DRG 189 ==
LOC: P.ED 11:39 → P.EDIPHOLD 15:50 → SUATTDRO 15:50 → P.MEDSURG 05-14 10:29
PROVIDERS: ATTEND Internal Medicine